=== PATIENT | female | born 1955 | race Caucasian/White ===

== ENCOUNTER 2022-03-24 09:11 | Outpatient (CLI) | payer MEDICARE, SELFPAY ==
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
== END 2022-03-24 09:12 | disposition home or self-care (01) ==
PROVIDERS: PCP Family Medicine; Visit Provider Orthopaedic Surgery
DX: Z01.818 Encounter for other preprocedural examination (principal)
CPT/HCPCS: 36415; 86850; 86900; 86901

== ENCOUNTER 2022-03-26 09:53 | Day surgery (SDC) | payer MEDICARE, SELFPAY ==
[2022-03-26] VITALS (20 sets, daily range): BP systolic 98–153; BP diastolic 48–80; PULSE 66–95; RESP 6–20; TEMP 36.1–36.7; O2SAT 6–98; BMI 31.6
[2022-03-26] MEDS: OXYCODONE (CR) 10 MG TAB.ER.12H PO (09:56)
[2022-03-26] MEDS: fentaNYL 100 MCG/2 ML inj IVP (09:56)
[2022-03-26] MEDS: CELECOXIB 200 MG CAPSULE PO ×2 (09:56→20:17)
[2022-03-26] MEDS: ACETAMINOPHEN 500 MG TABLET 1000 MG PO ×3 (09:56→23:38)
[2022-03-26] MEDS: MIDAZOLAM HCL 1 MG/ML inj IVP (09:56)
[2022-03-26] MEDS: LACTATED RINGERS 1000 ML 1,000 ML 100 ML IV ×2 (10:00→13:19)
--- NOTE | 2022-03-26 11:14 | SUR.PREOP ---
TIME?OUT:?1105 PT/RN/MDA?VERIFICATION?OF?SURGICAL?SITE,?PROCEDURE,?AND?CONSENT OBTAINED?PRIOR?TO?INVASIVE?PROCEDURE.left hip
[2022-03-26] MEDS: CEFAZOLIN 2 GM INJ IVP (11:46)
[2022-03-26] MEDS: TRANEXAMIC ACID 100 MG/ML INJ 1000 MG IV (11:50)
--- NOTE | 2022-03-26 12:15 | CRLHL7_ITS ---
For Patients: As a result of the Cures Act, medical imaging exams and procedure reports are released immediately into your electronic medical record. You may view this report before your referring provider. If you have questions, please contact your health care provider. Indication: Hip replacement surgery Technique: AP hip fluoroscopic images. Fluoroscopy time 105.5 seconds. Findings/Impression: Hardware from a left total hip arthroplasty is in satisfactory position. Dictated by John Bazzi MD @ 03/27/2022 10:00:53 AM (Electronically Signed)
--- NOTE | 2022-03-26 13:08 | P.NB_ITS ---
Nerve Block Nerve Block Time Seen by Provider: 11:05 Date Seen: 03/26/22 Type of block requested by surgeon for post-operative analgesia: ANA/LFCN Side: left Time out performed: Yes Verification of patient name: Yes Verification of date of : Yes Site marking: site marked Name of person performing procedure: João Continuous monitoring Was continuous monitoring of O2 sat, B/P, museum technician, recorded every 15 minutes?: Yes Procedure Checklist: sterile prep, needles and gloves Ultrasound guided. Images saved: Yes Medications given in 5ml increments after negative aspiration: Ropivicaine %: 0.5 mL: 30 Needle gauge: 20 Decadron (mg): 10 Precedex (mcg): 25 Patient tolerated procedure well: Yes Additional comments: Needle noted below psoas tendon needle noted adjacent to LFCN Block Charges Block Charge (with Pro Fee): Other Periph Nerve Block Use of Ultrasound Machine for Block: Yes- US Guidance/pain block
--- NOTE | 2022-03-26 13:23 | W.ANESCHARGE ---
Anesthesia Charges Start Date/Time Anesthesia Start Date: 03/26/22 Anesthesia Start Time: 11:31 Stop Date/Time Anesthesia Stop Date: 03/26/22 Anesthesia Stop Time: 14:34 Summary Emergency: No
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
--- NOTE | 2022-03-26 13:51 | PM.ORPRC ---
Procedure Note Date of procedure: 03/26/22 Procedure: PREOPERATIVE DIAGNOSIS: Left hip osteoarthritis POSTOPERATIVE DIAGNOSIS: Left hip osteoarthritis NAME OF OPERATION: Left total hip arthroplasty SURGEON: Kentrell Brennan MD FACILITIES CLERK: Elizabeth Engel PA-C, JONATAN Ahn IMPLANTS: 1. [employer] [place] # 52 sector ingrowth cup 2. 36 x 52 +4 neutral polyethylene 3. Actis # 3 standard collared ingrowth stem 4. 36 + 1.5 ceramic femoral head ANESTHESIA: General ESTIMATED BLOOD LOSS: 200 cc COMPLICATIONS: None SPECIMENS: None DRAINS: None PREOPERATIVE ANTIBIOTICS: Ancef 2 grams INDICATIONS: The patient is a 66-year-old with a longstanding history of severe, unrelenting left hip pain secondary to end-stage left hip osteoarthritis. Despite appropriate nonoperative management, including activity modification, use of an assist device, anti-inflammatories, [id number] pain medication, physical therapy and injections, they continue to have pain and disability. Operative intervention was offered. The risks, benefits and expected outcomes were discussed in detail. These included but were not limited to: Infection, bleeding, injury to blood vessel or nerve, venous thromboembolism. All questions were answered to their satisfaction. Use of an insurance assistant was necessary throughout the case for patient positioning and safety, soft tissue retraction and closure. A modifier 22 is appropriate for this case. With the patient's small acetabulum and eccentric wear, creating an oval-shaped cup, fixation of the acetabular component was difficult. This necessitated the use of screws an added more than 50% of the time typically required to complete the case. PROCEDURE: The patient was placed supine on the [place] table. General anesthesia was administered. The insurance assistant made sure the patient was properly positioned. The left hip was prepped and draped in the usual sterile fashion. The image intensifier was brought in for a perfect AP pelvis and a perfect double tear drop AP view of each hip which were used for intraoperative templating with our fluoroscopic guide. An oblique incision was made 3 cm distal and 3 cm lateral to the anterior superior iliac spine. The insurance assistant retracted the soft tissues to protect them. Subcutaneous dissection was taken with electrocautery to the superficial fascia. The fascia was divided in line with the incision. Blunt dissection was carried medially to the tensor fascia abiodun and sartorius interval. Deep dissection was carried with electrocautery. The circumflex vessels were cauterized and divided. The capsule was exposed and then divided in a T-fashion, tagged with #1 Ethibond sutures. Retractors were placed in the joint, held by the insurance assistant. The corkscrew was placed in the femoral head. The neck cut was made in the subcapital region. We made a second neck cut more distal. The napkin ring of bone was removed. The femoral head was removed intact. Acetabular retractors were placed, held by the insurance assistant. The labrum was sharply debrided. The capsule was released. The 43 mm reamer was used to the true medial wall. After doing so we appear to be medial to the ilioischial line on the AP view, despite just getting to the true medial wall. We then enlarged in 2 mm increments using the image intensifier for our reamer placement. Given the amount of superior bone loss, we needed to ream up to a larger cup. This resulted in loss of some of the anterior column. Therefore, fixation of the cup was difficult. We were unable to get provisional fixation of the cup with an manager pulmonary. Therefore, we placed the cup by hand, making sure it was fully seated. The dial in the version and coverage, using the image intensifier. We then placed a 6.5 mm x 40 mm superior screw in the ilium. This had excellent purchase. We placed a 2nd screw, more posterior and lateral in the ilium measuring 6.5 x 40 mm. Again, this had excellent purchase. Their placement was confirmed with the image intensifier in multiple planes. We placed the hole eliminator and the polyethylene. Attention was then turned to the proximal femur. The limb was placed in 140 degrees of external rotation, maximum extension and adduction. A significant amount of time was spent releasing the capsule to allow us to deliver the femur into the wound and complete the femoral side safely. Retractors were held by the insurance assistant throughout the femoral preparation. The box machine operator and canal finder were used. Broaches were used to a stable size. The calcar reamer was used. Trial components were placed. The hip was reduced and was found to be stable with appropriate soft tissue tension. Length and offset had been nicely restored using the image intensifier and our fluoroscopic guide. Trial components were removed. The stem was impacted. We placed the femoral head. Again, the hip was reduced and was found to be stable with appropriate soft tissue tension. Length and offset had been nicely restored. The insurance assistant did a three minute dilute Betadine solution soak. The insurance assistant irrigated the wound with 3 liters of normal saline via pulse lavage. The insurance assistant repaired the anterior capsule with a #1 Vicryl and our previously placed Ethibond sutures. The insurance assistant closed the fascia over the tensor fascia abiodun with a #1 PDO Stratafix, subcutaneous tissues with 2-0 Vicryl, skin with a running 3-0 Stratafix and glue. A dry dressing was applied by the insurance assistant. Sponge and needle counts were correct x 2. The patient tolerated the procedure well; there were no apparent complications. They were awakened and extubated in the operating room, sent to the Post-Anesthesia Care Unit in satisfactory condition. PLAN: 1. The patient will be mobilized with physical therapy, weight-bearing as tolerates 2. Xarelto x 5 days then aspirin x 30 days will be used for DVT prophylaxis 3. The patient will be discharged once medically appropriate
--- NOTE | 2022-03-26 14:37 | W.ANESCHARGE ---
Anesthesia Charges Start Date/Time Anesthesia Start Date: 03/26/22 Anesthesia Start Time: 11:31 Stop Date/Time Anesthesia Stop Date: 03/26/22 Anesthesia Stop Time: 14:34 Summary Emergency: No
[2022-03-26] MEDS: LACTATED RINGERS 1000 ML 1,000 ML 75 ML IV (15:40)
[2022-03-26] MEDS: HYDROmorphone 0.5 mg/0.5 ml inj IVP (15:51)
[2022-03-26] MEDS: CEFAZOLIN 1 GM in 0.9 % SODIUM CHLORIDE Mini-bag 100 ML IVPB (17:39)
[2022-03-26] MEDS: SENNOSIDES 1 TAB TABLET 2 TAB PO (20:17)
--- NOTE | 2022-03-26 20:30 | PC.NURSE ---
shift note: pt to via bed @ 1530. Pt moving lt l/e indept withing 2 hrs of return from pacu. pt has intact PP bilat. pt has cap refill <3sec. vss stable. IV patent. Ls clr. pt using IS . pt using angelica hugger upon arrival to . Pt up to bathroom 1/walker with steady gait. pt voided small amount. Pt tolerated diet. drs to lt thigh/hip c.d/i with ice to incision. pt medicated with dilaudid x1 for 5/10 pain in lt hip.
[2022-03-26] MEDS: OXYCODONE 5 MG TABLET PO (22:10)
[2022-03-27] MEDS: CEFAZOLIN 1 GM in 0.9 % SODIUM CHLORIDE Mini-bag 100 ML IVPB ×2 (02:16→10:26)
[2022-03-27] MEDS: OXYCODONE 5 MG TABLET PO ×3 (02:16→10:16)
[2022-03-27 03:00] VITALS: BP 135/71; PULSE 81; RESP 18; TEMP 36.7; O2SAT 100
--- NOTE | 2022-03-27 05:10 | PC.NURSE ---
[id number] Pt slept well during night, ambulating with walker, gb, sba, tolerates activity very well. rating R hip pain 2-4/10, relief with prn and scheduled meds. dressing C/D/I, active ice to site.
[2022-03-27] MEDS: ACETAMINOPHEN 500 MG TABLET 1000 MG PO (05:26)
[2022-03-27] MEDS: SODIUM CHLORIDE 0.9 % (FLUSH) 10 ML SYRINGE 5 ML IVF (05:29)
[2022-03-27 06:45] LABS: Basophils Percent Auto 0.1 % (0.0-3.0); Hematocrit 24.9 % (33.0-51.0); Immature Granulocytes Pct Auto 0.3 %; Lymphocytes Percent Auto 15.8 % (20-44); Mean Corpuscular HGB Conc 32 gm/dL (32-36); Mean Corpuscular Hemoglobin 29 pg (26-34); Mean Corpuscular Volume 89 fL (80-100); Monocytes Percent Auto 6.5 % (0.0-11.0); Neutrophils Percent Auto 77.3 % (42.0-72.0); Platelet Count* 242 K/uL (140-440); Red Blood Count 2.81 m/uL (4.00-5.20)
[2022-03-27 06:50] LABS: Slide Review Reflex No
[2022-03-27 07:00] VITALS: BP 144/89; PULSE 99; RESP 18; TEMP 36.7; O2SAT 98
[2022-03-27 07:07] LABS: Potassium* 5.1 mmol/L (3.6-5.1); Sodium* 133 mmol/L (135-149)
[2022-03-27 07:10] LABS: Blood Urea Nitrogen* 43 mg/dL (7-30); Creatinine* 1.8 mg/dL (0.5-1.5); Est. Creatinine Clearance* 22.57; Estimated Glomerular Filt Rate 30 ml/min
--- NOTE | 2022-03-27 08:48 | P.ORPN_ITS ---
Subjective Subjective Time Seen by Provider: 08:00 Date Seen: 03/27/22 Principal diagnosis: Status post left hip replacement Interval history: Marjorie is comfortable. She denies lightheadedness, fatigue, shortness of breath. She will be discharging to home today. She looks forward to getting back to work and playing with her grandchildren Ortho Exam Narrative Exam Narrative: Alert and oriented x3. Patient is in no acute distress. Converses without labored breathing. Hearing is grossly intact. Ambulates with a walker. Left hip dressing is intact. Mild tenderness. Mild soft tissue edema about the left hip. CMS is intact left lower extremity. Strong quad function. Bilateral calves are soft and nontender. Const Vital Signs, click to edit/add: Vital Signs - 24 hr 03/26/22 10:48 03/26/22 11:13 03/26/22 14:30 Temperature 97.8 F 97.0 F L Pulse Rate 82 70 73 Pulse Rate [Left Pulse Oximeter] Respiratory Rate 20 6 L 16 Blood Pressure 153/80 H 153/80 H 131/70 Blood Pressure [Right Arm] Pulse Oximetry 98 6 L 98 Oxygen Delivery Method Room Air Nasal Cannula Room Air Oxygen Flow Rate 3 03/26/22 14:35 03/26/22 14:40 03/26/22 14:45 Temperature Pulse Rate 72 68 68 Pulse Rate [Left Pulse Oximeter] Respiratory Rate 16 16 16 Blood Pressure 131/70 104/80 102/56 L Blood Pressure [Right Arm] Pulse Oximetry 97 98 98 Oxygen Delivery Method Room Air Room Air Room Air Oxygen Flow Rate 03/26/22 14:50 03/26/22 14:55 03/26/22 15:00 Temperature 97.0 F L Pulse Rate 67 66 68 Pulse Rate [Left Pulse Oximeter] Respiratory Rate 16 16 16 Blood Pressure 109/65 101/48 L 112/67 Blood Pressure [Right Arm] Pulse Oximetry 96 96 97 Oxygen Delivery Method Room Air Room Air Room Air Oxygen Flow Rate 03/26/22 15:33 03/26/22 15:30 03/26/22 15:45 Temperature 97.0 F L 97.4 F L 97.0 F L Pulse Rate Pulse Rate [Left Pulse Oximeter] 80 82 Respiratory Rate 15 15 16 Blood Pressure Blood Pressure [Right Arm] 102/69 102/69 111/57 L Pulse Oximetry 97 97 97 Oxygen Delivery Method Room Air Room Air Room Air Oxygen Flow Rate 3 03/26/22 16:00 03/26/22 16:15 03/26/22 16:30 Temperature 97.4 F L 97.4 F L 98 F Pulse Rate Pulse Rate [Left Pulse Oximeter] 82 82 85 Respiratory Rate 16 16 16 Blood Pressure Blood Pressure [Right Arm] 98/56 L 109/62 116/58 L Pulse Oximetry 97 97 94 Oxygen Delivery Method Room Air Room Air Room Air Oxygen Flow Rate 03/26/22 17:30 03/26/22 18:00 03/26/22 19:00 Temperature 98 F 98.1 F 97.9 F Pulse Rate Pulse Rate [Left Pulse Oximeter] 74 82 95 Respiratory Rate 16 16 16 Blood Pressure Blood Pressure [Right Arm] 100/68 110/67 100/68 Pulse Oximetry 95 95 97 Oxygen Delivery Method Room Air Room Air Room Air Oxygen Flow Rate 0 03/26/22 20:00 03/26/22 22:43 03/27/22 03:00 Temperature 97.8 F 98.0 F 98.0 F Pulse Rate Pulse Rate [Left Pulse Oximeter] 92 89 81 Respiratory Rate 16 18 18 Blood Pressure Blood Pressure [Right Arm] 124/73 118/72 135/71 Pulse Oximetry 98 98 100 Oxygen Delivery Method Room Air Room Air Room Air Oxygen Flow Rate 0 0 0 Assessment and Plan Assessment and plan (1) Status post left hip replacement: Problem details: Date of surgery 03/26/2022 Status: Acute Assessment and Plan: Plan for discharge is today to home if they meet discharge criteria. DVT prophylaxis includes Xarelto 10 mg daily for total of 5 days, then aspirin 81 mg twice daily for 30 days, Luis stockings x1 month may remove for 1 hr per d ay, frequent ambulation Remove dressing 1 week. Observe wound and phone Orthopedics with any questions or concerns Use Ice on operative hip unrestricted. Return to clinic in 1 week with PA for a wound check Return to clinic in [address] Brennan Minimize narcotic use. Wean off and discontinue soon as possible. Activities as tolerated. No strenuous activity. Attend outpt PT
[2022-03-27] MEDS: RIVAROXABAN 10 MG TABLET PO (09:12)
[2022-03-27] MEDS: CELECOXIB 200 MG CAPSULE PO (09:12)
[2022-03-27] MEDS: SENNOSIDES 1 TAB TABLET 2 TAB PO (09:12)
[2022-03-27 10:19] VITALS: BP 112/67; PULSE 68; RESP 18; TEMP 36.7
--- NOTE | 2022-03-27 11:46 | PC.NURSE ---
Pt. alert and oriented, pleasant and cooperative. Dressing to left hip C/D/I. Patient voiding well. Pt. tolerating reg diet. Pt. refused insulin and Blood sugar checks. Pt. IV removed intact. Discharged at 1115 accompanied by spouse, wheelchair ride to car, Pt. discharge instructions given and signed, belongings list signed, and pt. did not have any further questions regarding discharge. Pt. denied N/V/SOB. Pt. rated pain 4/10 and PRN oxy administered and tolerated well.
== END 2022-03-27 11:15 | disposition home or self-care (01) ==
LOC: OR 11:09 → MEDSURG 11:12
PROVIDERS: PCP Family Medicine; Visit Provider Orthopaedic Surgery
PROC: (CPT 27130; principal; 2022-03-26 12:15)
DX: M16.12 Unilateral primary osteoarthritis, left hip (principal); M25.552 Pain in left hip; I10 Essential (primary) hypertension; E11.9 Type 2 diabetes mellitus without complications; E78.00 Pure hypercholesterolemia, unspecified
CPT/HCPCS: 27130; 01214; 36415; 64450; 73501; 76942; 82565; 82962; 84132; 84295; 84520; 85025; 97116; 97161; 97165; A9270; C1713; C1776; J0330; J0690; J1100; J1170; J2250; J2370; J2405; J2704; J2795; J3010; J7120

== ENCOUNTER 2022-04-16 08:30 | Outpatient (RCR) | payer MEDICARE, SELFPAY ==
--- NOTE | 2022-03-22 08:59 | PT.OPEX ---
PT [place] [facility] Eval PT [facility] Out[facility] Eval Start: 03/22/22 07:22 Freq: Status: Active Protocol: Document 03/22/22 08:48 [email or web address] (Rec: 03/22/22 08:57 BETH [id number]) E-signed By Rita Montoya, PT Physical Therapy Outpatient Evaluation Insurance Information Recert Due Date 06/16/22 Insurance Name Other; See Comments Insurance Information/Comments [facility] medicare Medical Diagnosis Left hip replacement Left hip pain Encounter for other orthopedic aftercare Treating Diagnosis Left hip pain, limited hip ROM , antalgic gait, muscle weakness Referring MD Brennan Subjective Subjective Gretel reports to PT for preparation for upcoming left total hip replacement with anticipated DOS 03/26/22. [facility] [address] [facility] [address] [facility] with . 3 stairs to enter with B handrail and has already been negotiating with step to gait. Does have fridge in basement with extra groceries but able to negotiate stairs initially. She has FWW. 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 She plans to take about 8 weeks off from work but may return sooner if able. 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 DOS: scheduled for 03/26/22. Anticipated deficits/ impairments in pain, ROM, and strength. Pt would benefit from skilled PT interventions to facilitate preparation for upcoming surgery and optimization of return to PLOF following surgery. She demonstrates independence with HEP and use of FWW as well as appropriate gait pattern on stairs. She is appropriate to proceed with surgery at this time and has a safe d/c plan. All questions answered today. Primary Functional Limitations Walking, stair negotiation, getting up and down from the ground to play with grandkids, squatting, standing Plan of Care Rehabilitation Potential Good Physical Therapy Goals By end of session today, patient will...all goals met 03/22/22 Demonstrate appropriate gait pattern with FWW to utilize post surgery for optimal safety when ambulating Demonstrate ability to negotiate stairs using appropriate stair pattern post surgery for optimal safety when at home and in community Verbalize understanding of most appropriate home set up including needed equipment for optimal safety and recovery post surgery Be independent in HEP program to show ability to perform appropriate exercises post surgery Treatment Plan/Direct Interventions Gait Training,Ice/Cold/ Vasopneumatic,Joint Mobilization,Manual Therapy, Neuromuscular Re-ed,Self-Care/ Home Management,Therapeutic Activities,Therapeutic Exercises Frequency/Duration Re-evaluate following surgery Anticipated 1 x/wk for 4-6 weeks Patient Will Be Discharged From Therapy Completion of LTG(s), Independent w/HEP, Independently Progressing Evaluation Billing Untimed Code Treatment Minutes 15 Complexity Low Certification Information Initial Certification Date 03/22/22 Ending Certification Date 06/16/22 Provider Signature Shows Agreement With POC & Medical Necessity Physician Signature & Date Requested Please Sign/Date Here Physician Comment/Change : Physician NPI Number #
== END 2022-04-16 10:03 | disposition home or self-care (01) ==
PROVIDERS: PCP Family Medicine; Visit Provider Orthopaedic Surgery
DX: Z96.641 Presence of right artificial hip joint (principal); Z51.89 Encounter for other specified aftercare
CPT/HCPCS: 97110; 97116; 97161; 97164; 97535

== ENCOUNTER 2025-03-11 08:32 | Outpatient (CLI) | payer MEDICARE, SELFPAY | END 2025-03-11 08:33 | disposition home or self-care (01) | LOC: CT 08:33 | PROVIDERS: PCP Student in an Organized Health Care Education/Training Program; Visit Provider Orthopaedic Surgery Sports Medicine | DX: Z01.818 Encounter for other preprocedural examination (principal); M19.011 Primary osteoarthritis, right shoulder | CPT/HCPCS: 73200 ==

== ENCOUNTER 2025-04-07 06:01 | Day surgery (SDC) | payer MEDICARE, SELFPAY ==
[2025-04-07] VITALS (26 sets, daily range): BP systolic 102–160; BP diastolic 62–98; PULSE 62–90; RESP 12–18; TEMP 35.9–36.8; O2SAT 90–98; BMI 30.6
[2025-04-07] MEDS: SODIUM CHLORIDE 0.9 % (FLUSH) 10 ML SYRINGE IVF (06:55)
[2025-04-07] MEDS: LACTATED RINGERS 1000 ML 1,000 ML 100 ML IV (06:55)
[2025-04-07] MEDS: OXYCODONE (CR) 10 MG TAB.ER.12H PO (07:11)
--- NOTE | 2025-04-07 07:13 | W.PM.H&PU ---
History & Physical Update History & Physical Update H&P Reviewed and patient assessed: No changes noted
--- NOTE | 2025-04-07 07:26 | SUR.PREOP ---
TIME?OUT:?0735 PT/RN/MDA?VERIFICATION?OF?SURGICAL?SITE-RIGHT SHOULDER,?PROCEDURE,?NERVE BLOCK AND?CONSENT OBTAINED?PRIOR?TO?INVASIVE?PROCEDURE.
[2025-04-07] MEDS: MIDAZOLAM HCL 1 MG/ML inj IVP (07:37)
--- NOTE | 2025-04-07 08:12 | CRLHL7_ITS ---
For Patients: As a result of the Cures Act, medical imaging exams and procedure reports are released immediately into your electronic medical record. You may view this report before your referring provider. If you have questions, please contact your health care provider. Indication: Postop Technique: Two views right shoulder Findings/Impression: Hardware from a right shoulder arthroplasty is in satisfactory position. Bone alignment is normal. No sign of acute fracture. Postop changes are within normal limits. Dictated by John Bazzi MD @ 04/07/2025 10:38:04 AM (Electronically Signed)
--- NOTE | 2025-04-07 09:47 | P.ORPRC_ITS ---
Procedure Note Date of procedure: 04/07/25 Procedure: PREOPERATIVE DIAGNOSIS: 1. Right shoulder osteoarthrosis, primary, severe with fair to poor cuff tissue quality POSTOPERATIVE DIAGNOSIS: 1. Right shoulder osteoarthrosis, primary, severe with fair to poor cuff tissue quality 2. Right long head of the biceps tendinopathy and tenosynovitis PROCEDURE: 1. Right reverse shoulder arthroplasty. 2. Right long head of biceps open tenodesis SURGEON: Jose Lucero MD. TELEGRAPHIC TYPEWRITER OPERATOR: JONATAN Ahn - Of note, a skilled assistant floor covering printer was critical for this case to aid in patient positioning, tissue retraction, limb manipulation/positioning, retraction for glenoid exposure, which was challenging, awareness and protection of critical structures, and closure. ANESTHESIA: General plus supraclavicular block EBL: 200 ml IMPLANTS: DJ0 surgical Altivate humeral stem size 8 small shell, short with P2 porous coating vitamin E neutral poly small socket insert RSP glenoid base plate P2 porous coating with 3 perimeter locking screws 32 neutral glenosphere with retaining screw COMPLICATIONS: None evident INDICATIONS: The patient is a pleasant 69-year-old female who has experienced severe right shoulder pain and difficulty with use. Workup included imaging which revealed severe osteoarthrosis along with concern for rotator cuff quality. Physical exam was consistent with associated pain. Given the deformity, the dysfunction, and the pain, and failure of nonoperative m anagement, recommendation was made for surgery. DESCRIPTION OF PROCEDURE: Following a thorough discussion of risks, benefits, and alternatives, consent was obtained and the left shoulder was marked. The patient was brought to the operating room and placed supine on the operating table. Induction of anesthesia was undertaken. 1 g IV Ancef and 1 g tranexamic acid was administered within 1 hr of incision preoperatively. Appropriate time-out was performed identifying proper patient, site, and procedure. The operative extremity was prepped and draped in the appropriate sterile fashion using ChloraPrep after the patient was positioned in the lazy beach chair position with head in neutral alignment and all bony prominences well padded. A longitudinal incision was made for deltopectoral approach. Deltoid was retracted laterally. Cephalic vein was identified and retracted laterally as well. Vein was spared/protected throughout the case. The clavipectoral fascia was identified and divided longitudinally staying lateral to the conjoined tendon / coracoid. The conjoined tendon was protected with a blunt Hohmann. The long head of the biceps tendon was identified and the bicipital sheath released. The upper 1/4 of the pectoralis major was also released from its insertion. The long head of the biceps was tenodesed to the pectoralis major tendon. The remaining proximal tendon tissue was excised. The rotator cuff was inspected and found to have good integrity with the subscapularis but fair integrity with a supraspinatus, and a decision for a reverse shoulder arthroplasty was confirmed. The long head of biceps, of note, was significant flattened, thickened, with abundant tenosynovitis. A subscapularis cuff of tissue was left via tenotomy for later repair with the remaining subscapularis released in a subperiosteal fashion with the Bovie. This was tagged for later repair. The 3 sisters were cauterized. The upper subscapularis was released from the capsule with a curved Hinton scissors towards the glenoid. The inferior subscapularis was divided from the capsular tissue on its caudal surface with particular caution for the axillary nerve. This was palpated anterior to the subscapularis both prior to and near the finish of the case. Inferior humeral head osteophytes were excised with caution taken throughout the case with regards to the axillary nerve. The humerus was dislocated, and humeral head cut completed. Then a protector plate was applied. We turned our attention to the glenoid. The humerus was retracted posteriorly. The subscap was protected anteriorly and the labrum/long head biceps origin was excised circumferentially. The capsule was released along the anterior and inferior portions of the glenoid cautiously with a Rebolledo elevator being careful not to penetrate deep. The glenoid had appropriate exposure, and was prepared with the cannulated system with a target of approximately 0-5? of inferior tilt and corrected version based on preoperative templating (patient had ~10? of retroversion initially). Utilizing the match Point 3D printed guide, the guide pin was placed. The 3D printed jig removed and after placing the guide pin, the tap was placed followed by the glenoid reaming. The real base plate was opened, and inserted, and excellent compression/purchase was achieved with the central screw. Peripheral screws we re then drilled, measured, and placed. The glenosphere was then placed consistent with the preoperative plan utilizing the above noted glenosphere. After securing the glenosphere with the locking, torque limited screw, attention was turned back to the humerus. The humerus reaming was undertaken with the centered guide. A canal finder/reamer was sequentially enlarged by hand consistent with the preop plan. The real humeral stem was then opened and inserted with excellent metaphyseal fit and stability.[ Trial poly was placed and the shoulder reduced. Excellent reduction and stability achieved with appropriate tension on the conjoined tendon. At this stage, trial implants were removed, and the real polyethylene was inserted and the shoulder reduced. A 3 minute Betadine soak was performed followed by a thorough irrigation with normal saline. Subscapularis was repaired with #1 PDS to the cuff of tissue on the lesser tuberosity. Excellent reapproximation of tissue achieved. He mostasis was found to be appropriate. The deltopectoral interval was reapproximated with 0 Vicryl, subcutaneous and subcuticular closure was then performed with number 2-0 Vicryl and 4-0 Monocryl, respectively. A skilled assistant floor covering printer was critical for this case to aid in patient positioning, tissue retraction, limb manipulation/positioning, retraction for glenoid exposure, which was challenging, awareness and protection of critical structures, and closure. PLAN: 1. Sling much of the time to operative extremity. May come out of this for prescribed shoulder flexion to 90?, pendulums, and elbow/forearm/wrist/digit range of motion as tolerated. 2. OT consults to evaluate and treat along with education/assistance. 3. Tylenol, Ibuprofen, and/or Oxycodone for analgesics PRN. 4. Early ambulation encouraged. 5. 23 hr perioperative antibiotics 6. Given a systolic murmur heard by our anesthesia team and some irregular heart rhythms during the procedure, mutual decision was made to have the patient admitted overnight. The hospitalist team has been notified. An echocardiogram is planned during this admission.
--- NOTE | 2025-04-07 10:22 | P.ANES_ITS ---
Anesthesia Charges Start Date/Time Anesthesia Start Date: 04/07/25 Anesthesia Start Time: 07:47 Stop Date/Time Anesthesia Stop Date: 04/07/25 Anesthesia Stop Time: 10:22 Summary Extremes of Age - Over 70 or under 1: STRING LASTER Coding CPT Codes CPT Codes: ANESTH SHOULDER REPLACEMENT - 98301 ([id number]) P3 - PATIENT W/SEVERE SYS DISEASE, QK - PROGRAM MANAGEMENT ANALYST 2-4 CNCRNT ANES PROC, QX - STRING LASTER SVC W/ MD MED DIRECTION Additional Codes: Summary - Extremes of Age - Over 70 or under 1: STRING LASTER ([id number])
--- NOTE | 2025-04-07 10:22 | W.ANESCHARGE ---
Anesthesia Charges Start Date/Time Anesthesia Start Date: 04/07/25 Anesthesia Start Time: 07:47 Stop Date/Time Anesthesia Stop Date: 04/07/25 Anesthesia Stop Time: 10:22 Summary Extremes of Age - Over 70 or under 1: FUR FLOOR WORKER Coding CPT Codes CPT Codes: ANESTH SHOULDER REPLACEMENT - 20223 ([id number]) P3 - PATIENT W/SEVERE SYS DISEASE, QK - NEUROLOGY NURSE 2-4 CNCRNT ANES PROC, QX - FUR FLOOR WORKER SVC W/ MD MED DIRECTION Additional Codes: Summary - Extremes of Age - Over 70 or under 1: FUR FLOOR WORKER ([id number])
--- NOTE | 2025-04-07 10:26 | P.NB_ITS ---
Nerve Block Nerve Block Time Seen by Provider: 07:35 Date Seen: 04/07/25 Type of block requested by surgeon for post-operative analgesia: supraclavicular Side: right Time out performed: Yes Verification of patient name: Yes Verification of date of : Yes Site marking: site marked Name of person performing procedure: João Continuous monitoring Was continuous monitoring of O2 sat, B/P, clinical research monitor, recorded every 15 minutes?: Yes Procedure Checklist: sterile prep, needles and gloves Ultrasound guided. Images saved: Yes Medications given in 5ml increments after negative aspiration: Ropivicaine %: 0.5 mL: 15 Needle gauge: 22 Precedex (mcg): 25 Patient tolerated procedure well: Yes Block Charges Block Charge (with Pro Fee): Brachial Plexus Use of Ultrasound Machine for Block: Yes- US Guidance/pain block
--- NOTE | 2025-04-07 10:27 | P.ANES_ITS ---
Anesthesia Charges Start Date/Time Anesthesia Start Date: 04/07/25 Anesthesia Start Time: 07:47 Stop Date/Time Anesthesia Stop Date: 04/07/25 Anesthesia Stop Time: 10:22 Summary Extremes of Age - Over 70 or under 1: MDA Coding CPT Codes CPT Codes: ANESTH SHOULDER REPLACEMENT - 77548 ([id number]) QK - OPERATING MANAGER 2-4 CNCRNT ANES PROC, QX - WATER USE INSPECTOR SVC W/ MD MED DIRECTION, P3 - PATIENT W/SEVERE SYS DISEASE Additional Codes: Summary - Extremes of Age - Over 70 or under 1: MDA ([id number])
[2025-04-07] MEDS: LACTATED RINGERS 1000 ML 1,000 ML 75 ML IV (11:35)
--- NOTE | 2025-04-07 13:34 | PM.IMCN1 ---
Date of Consult Patient: Idalia Patient Consult date: 04/07/25 Requesting Physician: Orthopedics Primary Care Provider: Adeola Oconnor, DO Consult Narrative Narrative: Gretel Dyer is a 69 year old female admitted to the hospital for elective right reverse shoulder arthroplasty. Procedure performed by Dr. Lucero. He requests consultation for medical management. There are no operative complications though she did have bigeminy noted by Anesthesia and they recommended cardiac monitoring postoperatively. Patient reports feeling fine postoperatively. No dyspnea. She is requiring a little bit of oxygen to maintain her oxygen saturations. No chest pain or palpitations. She reports a longstanding history of a heart murmur but she does not recall having a diagnosis for this heart murmur. She did have a stress echo in June of 2015 which noted no significant valvular disease. She has not had symptomatic heart disease with unusual exertional dyspnea, chest pain, palpitations, syncope, PND. She has not had problems with previous surgeries including no problems with anesthesia, bleeding or clotting disorders. Review of Systems Narrative: Negative except as noted above [facility]SH [facility] Medical History (Updated 04/07/25 @ 13:45 by Christos Torres MD) Chronic renal disease, stage III ?N18.30 - Chronic kidney disease, stage 3 unspecified (ICD-10) Mild single current episode of major depressive disorder ?F32.0 - Major depressive disorder, single episode, mild (ICD-10) PTSD (post-traumatic stress disorder) ?F43.10 - Post-traumatic stress disorder, unspecified (ICD-10) Diabetes ?E11.9 - Type 2 diabetes mellitus without complications (ICD-10) High cholesterol ?E78.00 - Pure hypercholesterolemia, unspecified (ICD-10) Hypertension ?I10 - Essential (primary) hypertension (ICD-10) Surgical History (Updated 04/07/25 @ 13:44 by Christos Torres MD) Status post reverse arthroplasty of shoulder ?Z96.619 - Presence of unspecified artificial shoulder joint (ICD-10) Status post left hip replacement (03/26/22) ?Z96.642 - Presence of left artificial hip joint (ICD-10) History of vitrectomy ?Z98.890 - Other specified postprocedural states (ICD-10) S/P total left hip arthroplasty (03/26/22) ?Z96.642 - Presence of left artificial hip joint (ICD-10) H/O eye surgery H/O: hysterectomy ?Z90.710 - Acquired absence of both cervix and uterus (ICD-10) H/O section ?Z98.891 - History of uterine scar from previous surgery (ICD-10) Status post total knee replacement, right ?Z96.651 - Presence of right artificial knee joint (ICD-10) Family History Father Emphysema lung Mother Dementia Brother Melanocarcinoma Sister Osteopenia Bronchitis Social History (Updated 04/07/25 @ 13:41 by Christos Torres MD) Narrative: She lives between [place] in [place] with her . 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 She does not smoke and rarely drinks alcohol. Smoking Status: Never smoker Do you use any of these nicotine containing products: None How often do you have a drink containing alcohol: monthly or less Alcohol type: wine How many standard drinks containing alcohol do you have on a typical day: 1 or 2 How often do you have six or more drinks on one occasion: Never AUDIT-C Alcohol total score: 1 Non-prescribed substance use: denies use Caffeine: No Are you using contraception or practicing any form of control: No Meds Home Medications and Allergies Home Medications ?Medication ?Instructions ?Recorded ?Confirmed ?Type amoxicillin 500 mg capsule 2,000 mg PO ONCE PRN 02/20/22 04/07/25 History escitalopram oxalate 10 mg tablet 10 mg PO DAILY 02/20/22 04/07/25 History glimepiride 1 mg tablet 1 mg PO DAILY 02/20/22 04/07/25 History lisinopril 5 mg tablet 5 mg PO DAILY 02/20/22 04/07/25 History metformin 500 mg tablet,extended 500 mg PO BIDWM 02/20/22 04/07/25 History release 24 hr simvastatin 20 mg tablet 20 mg PO HS 02/20/22 04/07/25 History acetaminophen 500 mg capsule 500 - 1,000 mg (1 - 2 x 500 mg) PO 03/26/22 04/07/25 Rx Q6H PRN pain #100 caps aspirin 81 mg tablet,delayed 81 mg PO DAILY 05/08/22 04/07/25 History release lorazepam 0.5 mg tablet 0.5 mg PO Q6H PRN 03/31/23 04/07/25 History ondansetron 4 mg disintegrating 4 mg PO Q8H PRN nausea and 04/07/25 Rx tablet vomiting #15 tabs oxycodone 5 mg tablet 5 mg PO Q4-8H PRN pain #25 tabs 04/07/25 Rx sennosides 8.6 mg-docusate sodium 1 tab-cap PO BID PRN constipation 04/07/25 Rx 50 mg tablet (Senna-S) #15 tabs Allergies Allergy/AdvReac Type Severity Reaction Status Date / Time atorvastatin Allergy itching Verified 04/07/25 06:16 Exam Narrative: Exam Narrative: She is alert and appears in no distress. Speech is normal. Oropharynx with small airway. Neck is supple without mass or adenopathy. No jugular venous distension. Respirations are clear to auscultation. Cardiovascular: S1, S2, regular rate and rhythm. Abdomen: Bowel sounds active. Abdomen is soft without tenderness or mass. Right upper extremity has affective anesthesia causing numbness and inability to move the fingers of her right hand. They are warm to touch with good capillary refill and good pulses. Left upper extremity in both lower extremities are normal with intact pulses motion and sensation. Const: Vital Signs, click to edit/add: Vital Signs - 24 hr 04/07/25 06:48 04/07/25 07:35 04/07/25 07:40 Temperature 36.7 C Pulse Rate 68 76 62 Pulse Rate [Pulse Oximeter] Respiratory Rate 16 14 12 Blood Pressure 160/95 H 160/98 H 129/78 Blood Pressure [Le ft Arm] Pulse Oximetry 97 97 94 Oxygen Delivery Me thod Room Air Room Air Nasal Cannula Oxygen Flow Rate 3 04/07/25 10:17 04/07/25 10:25 04/07/25 10:30 Temperature 36.1 C L Pulse Rate 85 80 84 Pulse Rate [Pulse Oximeter] Respiratory Rate 16 14 14 Blood Pressure 149/83 H 132/62 149/80 H Blood Pressure [Le ft Arm] Pulse Oximetry 90 96 97 Oxygen Delivery Me thod Room Air Nasal Cannula Nasal Cannula Oxygen Flow Rate 3 3 04/07/25 10:35 04/07/25 10:40 04/07/25 10:45 Temperature 36.2 C L Pulse Rate 80 80 81 Pulse Rate [Pulse Oximeter] Respiratory Rate 16 14 18 Blood Pressure 125/75 134/72 139/79 Blood Pressure [Le ft Arm] Pulse Oximetry 98 97 96 Oxygen Delivery Me thod Nasal Cannula Nasal Cannula Room Air Oxygen Flow Rate 3 3 04/07/25 10:50 04/07/25 10:55 04/07/25 11:04 Temperature 36.2 C L Pulse Rate 84 81 Pulse Rate [Pulse Oximeter] 82 Respiratory Rate 14 16 Blood Pressure 131/77 135/76 Blood Pressure [Le ft Arm] 130/85 Pulse Oximetry 94 95 95 Oxygen Delivery Me thod Room Air Room Air Room Air Oxygen Flow Rate 04/07/25 11:15 Temperature Pulse Rate Pulse Rate [Pulse Oximeter] 75 Respiratory Rate 16 Blood Pressure Blood Pressure [Le ft Arm] 114/70 Pulse Oximetry 95 Oxygen Delivery Me thod Room Air Oxygen Flow Rate Assessment and Plan Assessment and plan (1) Status post reverse arthroplasty of shoulder: Problem comment: Dr. Nic Mcduffie, 04/07/2025 Status: Acute (2) Heart murmur: Problem comment: Obtain echo. Not clearly symptomatic Status: Acute (3) Bigeminy: Problem comment: Electrocardiogram on preop was normal. driver manager, check electrolytes Status: Acute Plan 69-year-old female admitted to the hospital for postoperative monitoring of cardiac arrhythmia and heart murmur. Cardiac evaluation will be done here with probable outpatient follow-up with Cardiology depending on her clinical course and findings. Total Time Spent Total Time Spent: Total time spent today is 60 minutes in reviewing outside records, coordination of care, discussion with patient and other providers ongoing management of heart rhythm problems and heart murmurs
[2025-04-07 14:01] LABS: Chloride* 103 mmol/L (96-114); Potassium* 4.2 mmol/L (3.6-5.1); Sodium* 134 mmol/L (135-149)
[2025-04-07 14:04] LABS: Anion Gap 11 mEq/L (7-15); Blood Urea Nitrogen* 23 mg/dL (7-30); Carbon Dioxide* 20 mmol/L (20-32); Creatinine* 1.1 mg/dL (0.5-1.5); Est. Creatinine Clearance* 35.40; Estimated Glomerular Filt Rate 54 ml/min
[2025-04-07 14:05] LABS: Calcium* 8.5 mg/dL (8.4-10.6); Glucose* 226 mg/dL (60-115)
[2025-04-07 14:47] LABS: Hematocrit* 33.6 % (33.0-51.0); Hemoglobin* 10.1 gm/dL (12.0-16.0); Immature Granulocytes Pct Auto 0.3 %; Mean Corpuscular HGB Conc 30 gm/dL (32-36); Mean Corpuscular Hemoglobin 29 pg (26-34); Mean Corpuscular Volume 96 fL (80-100); RDW Coefficient of Variation % 13.4 % (11.5-15.5); Red Blood Count* 3.49 m/uL (4.00-5.20); White Blood Count* 12.28 K/uL (4.50-11.00)
[2025-04-07 14:52] LABS: Immature Granulocytes Abs Auto 0.00 K/uL (0.00-0.30); Lymphocytes Absolute Auto 0.90 K/uL (0.90-2.90); Slide Review Reflex No
[2025-04-07] MEDS: CEFAZOLIN 1 GM in 0.9 % SODIUM CHLORIDE Mini-bag 100 ML IVPB (14:54)
[2025-04-07] MEDS: ACETAMINOPHEN 500 MG TABLET 1000 MG PO ×2 (14:54→20:51)
[2025-04-07 15:04] LABS: NT Pro B Type NatriureticPept* 48 pg/mL (See Note)
--- NOTE | 2025-04-07 16:03 | PC.NURSE ---
Nursing note this public relations writer in pt chart d/t assisting day nurse
[2025-04-07] MEDS: METFORMIN ER 500 MG PO (18:01)
--- NOTE | 2025-04-07 19:06 | PC.NURSE ---
End of Shift: Patient pleasant and cooperative, A&O. VSS, afebrile. SpO2 maintained above 90% on RA while awake, pt was needing supplemental O2 while sleeping this shift. Patient denies pain this shift. Dressing to right shoulder C/D/I, CMS intact. Tolerating regular diet, denies nausea.
[2025-04-07] MEDS: SIMVASTATIN 20 MG TABLET PO (20:52)
[2025-04-08 01:00] VITALS: BP 140/70; PULSE 90; RESP 18; TEMP 36.7; O2SAT 97
[2025-04-08] MEDS: CEFAZOLIN 1 GM in 0.9 % SODIUM CHLORIDE Mini-bag 100 ML IVPB ×2 (01:05→06:56)
[2025-04-08] MEDS: ACETAMINOPHEN 500 MG TABLET 1000 MG PO ×2 (02:24→08:55)
[2025-04-08 02:47] VITALS: BP 153/64; PULSE 74; RESP 18; TEMP 36.7; O2SAT 95
[2025-04-08 05:00] VITALS: BP 148/66; PULSE 74; RESP 18; TEMP 36.7; O2SAT 94
[2025-04-08 07:00] VITALS: BP 144/83; PULSE 80; PULSE 91; RESP 18; TEMP 36.7; O2SAT 99
[2025-04-08 08:37] VITALS: BP 144/83; RESP 18; TEMP 36.7; O2SAT 99
[2025-04-08] MEDS: GLIMEPIRIDE 1 MG TABLET PO (08:55)
[2025-04-08] MEDS: METFORMIN ER 500 MG PO (08:55)
[2025-04-08] MEDS: ASPIRIN 81 MG TABLET EC PO (08:56)
[2025-04-08] MEDS: SODIUM CHLORIDE 0.9 % (FLUSH) 10 ML SYRINGE 5 ML IVF (08:56)
[2025-04-08] MEDS: ESCITALOPRAM 10 MG TABLET PO (08:56)
[2025-04-08] MEDS: SENNOSIDES 1 TAB TABLET 2 TAB PO (08:56)
--- NOTE | 2025-04-08 09:46 | P.ORPN_ITS ---
Subjective Subjective Time Seen by Provider: 07:45 Date Seen: 04/08/25 Principal diagnosis: Status post right reverse total shoulder arthroplasty Interval history: Gretel feels that her block has already worn off. She can move her fingers, w rist, elbow and sensation has returned. She will discharge to home today. Ortho Exam Narrative Exam Narrative: Alert and oriented x3. Patient is in no acute distress. Converses without labored breathing. Hearing is grossly intact. Ambulates with a normal gait. Examination of the right shoulder shows ecchymosis. Dressing is in place and intact. No erythema or warmth or sign of infection. She is easily able to range her right elbow, wrist, fingers. Sensation is normal in her hand. Mild edema. Const Vital Signs, click to edit/add: Vital Signs - 24 hr 04/07/25 10:17 04/07/25 10:25 04/07/25 10:30 Temperature 97.0 F L Pulse Rate 85 80 84 Pulse Rate [Pulse Oximeter] Respiratory Rate 16 14 14 Blood Pressure 149/83 H 132/62 149/80 H Blood Pressure [Left Arm] Pulse Oximetry 90 96 97 Oxygen Delivery Method Room Air Nasal Cannula Nasal Cannula Oxygen Flow Rate 3 3 04/07/25 10:35 04/07/25 10:40 04/07/25 10:45 Temperature 97.1 F L Pulse Rate 80 80 81 Pulse Rate [Pulse Oximeter] Respiratory Rate 16 14 18 Blood Pressure 125/75 134/72 139/79 Blood Pressure [Left Arm] Pulse Oximetry 98 97 96 Oxygen Delivery Method Nasal Cannula Nasal Cannula Room Air Oxygen Flow Rate 3 3 04/07/25 10:50 04/07/25 10:55 04/07/25 11:04 Temperature 97.2 F L Pulse Rate 84 81 Pulse Rate [Pulse Oximeter] 82 Respiratory Rate 14 16 Blood Pressure 131/77 135/76 Blood Pressure [Left Arm] 130/85 Pulse Oximetry 94 95 95 Oxygen Delivery Method Room Air Room Air Room Air Oxygen Flow Rate 04/07/25 11:15 04/07/25 11:30 04/07/25 11:45 Temperature 96.7 F L 97.3 F L Pulse Rate Pulse Rate [Pulse Oximeter] 75 81 80 Respiratory Rate 16 16 16 Blood Pressure Blood Pressure [Left Arm] 114/70 130/72 119/70 Pulse Oximetry 95 92 93 Oxygen Delivery Method Room Air Room Air Room Air Oxygen Flow Rate 04/07/25 12:00 04/07/25 12:30 04/07/25 13:00 Temperature 96.9 F L Pulse Rate Pulse Rate [Pulse Oximeter] 82 89 88 Respiratory Rate 16 Blood Pressure Blood Pressure [Left Arm] 102/68 121/66 124/73 Pulse Oximetry 93 96 Oxygen Delivery Method Nasal Cannula Room Air Oxygen Flow Rate 1 04/07/25 14:00 04/07/25 15:00 04/07/25 15:30 Temperature 98.3 F Pulse Rate 89 Pulse Rate [Pulse Oximeter] 87 87 Respiratory Rate 16 18 Blood Pressure Blood Pressure [Left Arm] 129/75 122/71 Pulse Oximetry 96 95 Oxygen Delivery Method Room Air Oxygen Flow Rate 04/07/25 16:00 04/07/25 17:00 04/07/25 19:00 Temperature 98.1 F 98.1 F Pulse Rate Pulse Rate [Pulse Oximeter] 84 89 89 Respiratory Rate 16 16 Blood Pressure Blood Pressure [Left Arm] 120/72 120/66 120/66 Pulse Oximetry 96 96 Oxygen Delivery Method Room Air Room Air Oxygen Flow Rate 1 04/07/25 21:00 04/07/25 23:00 04/07/25 23:00 Temperature 98 F Pulse Rate Pulse Rate [Pulse Oximeter] 74 74 Respiratory Rate 16 16 16 Blood Pressure Blood Pressure [Left Arm] 119/80 Pulse Oximetry 96 96 Oxygen Delivery Method Room Air Room Air Oxygen Flow Rate 04/07/25 23:00 04/07/25 23:00 04/08/25 01:00 Temperature 98 F 98.1 F Pulse Rate 90 Pulse Rate [Pulse Oximeter] 74 90 Respiratory Rate 16 18 Blood Pressure Blood Pressure [Left Arm] 119/80 140/70 H Pulse Oximetry 96 97 Oxygen Delivery Method Room Air Room Air Oxygen Flow Rate 1 04/08/25 02:47 04/08/25 05:00 04/08/25 07:00 Temperature 98.1 F 98.1 F Pulse Rate 91 Pulse Rate [Pulse Oximeter] 74 74 Respiratory Rate 18 18 Blood Pressure Blood Pressure [Left Arm] 153/64 H 148/66 H Pulse Oximetry 95 94 Oxygen Delivery Method Room Air Room Air Oxygen Flow Rate 04/08/25 07:00 04/08/25 07:00 04/08/25 08:37 Temperature 98.1 F 98.1 F Pulse Rate Pulse Rate [Pulse Oximeter] 80 Respiratory Rate 18 18 Blood Pressure Blood Pressure [Left Arm] 144/83 H 144/83 H Pulse Oximetry 99 99 99 Oxygen Delivery Method Room Air Room Air Room Air Oxygen Flow Rate Assessment and Plan Assessment and plan (1) Status post reverse arthroplasty of shoulder: Problem details: Right, Dr. Lucero, 04/07/2025 Status: Acute Assessment and Plan: Plan for discharge is to home when they meet discharge criteria. Patient will wear the sling for 6 weeks post surgery. They can take it off for comfort and for exercises. May come out of this for prescribed shoulder flexion to 90?, pendulums, and elbow/forearm/wrist/digit range of motion as tolerated. Patient will attend outpatient physical therapy for the operative shoulder . For discharge, oxycodone and Tylenol for pain. Do not drive while on narcotic pain medication. Drive only when safe to do so, when they have normal use/function of the upper extremity, this will likely take 6 weeks. Patient will minimize and discontinue the narcotic as soon as possible. Dressing will be removed at post operative appt. Dressing is waterproof. May shower. Expect swelling and bruising about the shoulder and upper extremity. Use of ice/active ice without restriction. Notify Orthopedics if swelling is excessive. notify Orthopedics with any questions or concerns. [phone] Return to Orthopedic clinic as scheduled for a wound check Return to clinic in [address] Brennan.
--- NOTE | 2025-04-08 10:59 | P.IMPN_ITS ---
Assessment and Plan Assessment and plan (1) Status post reverse arthroplasty of shoulder: Problem comment: Right, Dr. Lucero, 04/07/2025. Uncomplicated postoperative course Status: Acute (2) Atrial bigeminy: Problem comment: Noted with induction of anesthesia and blood pressure going from high to low normal. 24 hours of cardiac monitoring subsequently showed no arrhythmia Status: Acute (3) Aortic stenosis: Problem comment: Moderate aortic stenosis seen on echocardiogram from 04/07/2025. Routine outpatient follow-up Status: Acute (4) Hypomagnesemia: Problem comment: Magnesium 1.3. Oral replacement and follow-up in 1-2 months Status: Acute Plan 69-year-old female in observation after surgery for reverse shoulder arthroplasty with cardiac dysrhythmia and murmur. Doing very well. She has asymptomatic moderate aortic stenosis which should get non emergent outpatient follow-up for ongoing monitoring. She had atrial bigeminy which can also receive outpatient follow-up if recurrent symptoms. Low magnesium requiring oral replacement and outpatient follow-up. Continue outpatient management of other chronic problems as needed. Total Time Spent Total Time Spent: Total time spent today is 35 minutes in coordination of care and discussing with patient and other providers ongoing management of these problems Subjective Date Seen: 04/08/25 Interval history: Gretel Dyer is a 69 year old female admitted to the hospital for elective right reverse shoulder arthroplasty. Procedure performed by Dr. Lucero. He requests consultation for medical management. There are no operative complications though she did have atrial bigeminy noted by Anesthesia when they induced anesthesia and her blood pressure dropped to low normal range. Because of the arrhythmia and her significant cardiac murmur they recommended hospital observation after surgery. Patient reports feeling fine postoperatively. No dyspnea. She is requiring a little bit of oxygen to maintain her oxygen saturations. No chest pain or palpitations. She reports a longstanding history of a heart murmur but she does not recall having a diagnosis for this heart murmur. She did have a stress echo in June of 2015 which noted no significant valvular disease. She has not had symptomatic heart disease with unusual exertional dyspnea, chest pain, palpitations, syncope, PND. She has not had problems with previous surgeries including no problems with anesthesia, bleeding or clotting disorders. Cardiac monitoring in the hospital was normal without significant dysrhythmia. Echocardiogram was normal except for moderate aortic stenosis. Electrolytes were normal except for a magnesium of 1.3. She remained entirely asymptomatic and has done well postoperatively with her shoulder surgery. Exam Narrative: Exam Narrative: She is alert and appears in no distress. Mood and affect are bright. Breathing is unlabored. Right upper extremity in a sling. Hand is warm to touch with good capillary refill. Some edema. Const: Vital Signs, click to edit/add: Vital Signs - 24 hr 04/07/25 11:04 04/07/25 11:15 04/07/25 11:30 Temperature 35.9 C L Pulse Rate Pulse Rate [Pulse Oximeter] 82 75 81 Respiratory Rate 16 16 Blood Pressure [Le ft Arm] 130/85 114/70 130/72 Pulse Oximetry 95 95 92 Oxygen Delivery Me thod Room Air Room Air Room Air Oxygen Flow Rate 04/07/25 11:45 04/07/25 12:00 04/07/25 12:30 Temperature 36.3 C L 36.1 C L Pulse Rate Pulse Rate [Pulse Oximeter] 80 82 89 Respiratory Rate 16 16 Blood Pressure [Le ft Arm] 119/70 102/68 121/66 Pulse Oximetry 93 93 96 Oxygen Delivery Me thod Room Air Nasal Cannula Room Air Oxygen Flow Rate 1 04/07/25 13:00 04/07/25 14:00 04/07/25 15:00 Temperature 36.8 C Pulse Rate Pulse Rate [Pulse Oximeter] 88 87 87 Respiratory Rate 16 18 Blood Pressure [Le ft Arm] 124/73 129/75 122/71 Pulse Oximetry 96 95 Oxygen Delivery Me thod Room Air Oxygen Flow Rate 04/07/25 15:30 04/07/25 16:00 04/07/25 17:00 Temperature 36.7 C Pulse Rate 89 Pulse Rate [Pulse Oximeter] 84 89 Respiratory Rate 16 Blood Pressure [Le ft Arm] 120/72 120/66 Pulse Oximetry 96 Oxygen Delivery Me thod Room Air Oxygen Flow Rate 04/07/25 19:00 04/07/25 21:00 04/07/25 23:00 Temperature 36.7 C 36.6 C Pulse Rate Pulse Rate [Pulse Oximeter] 89 74 74 Respiratory Rate 16 16 16 Blood Pressure [Le ft Arm] 120/66 119/80 Pulse Oximetry 96 96 Oxygen Delivery Me thod Room Air Room Air Oxygen Flow Rate 1 04/07/25 23:00 04/07/25 23:00 04/07/25 23:00 Temperature 36.6 C Pulse Rate 90 Pulse Rate [Pulse Oximeter] 74 Respiratory Rate 16 16 Blood Pressure [Le ft Arm] 119/80 Pulse Oximetry 96 96 Oxygen Delivery Me thod Room Air Room Air Oxygen Flow Rate 1 04/08/25 01:00 04/08/25 02:47 04/08/25 05:00 Temperature 36.7 C 36.7 C 36.7 C Pulse Rate Pulse Rate [Pulse Oximeter] 90 74 74 Respiratory Rate 18 18 18 Blood Pressure [Le ft Arm] 140/70 H 153/64 H 148/66 H Pulse Oximetry 97 95 94 Oxygen Delivery Me thod Room Air Room Air Room Air Oxygen Flow Rate 04/08/25 07:00 04/08/25 07:00 04/08/25 07:00 Temperature 36.7 C Pulse Rate 91 Pulse Rate [Pulse Oximeter] 80 Respiratory Rate 18 Blood Pressure [Le ft Arm] 144/83 H Pulse Oximetry 99 99 Oxygen Delivery Me thod Room Air Room Air Oxygen Flow Rate 04/08/25 08:37 Temperature 36.7 C Pulse Rate Pulse Rate [Pulse Oximeter] Respiratory Rate 18 Blood Pressure [Le ft Arm] 144/83 H Pulse Oximetry 99 Oxygen Delivery Me thod Room Air Oxygen Flow Rate Labs Labs: Laboratory Results - last 24 hr 04/07/25 04/07/25 04/07/25 13:43 13:50 14:31 WBC 12.28 H RBC 3.49 L Hgb 10.1 L Hct 33.6 MCV 96 MCH 29 MCHC 30 L RDW Coeff of Bobbi 13.4 Plt Count 196 Neut % (Auto) 89.3 H Lymph % (Auto) 7.2 L [place] % (Auto) 3.0 Eos % (Auto) 0.1 Baso % (Auto) 0.1 Neut # (Auto) 11.00 H Lymph # (Auto) 0.90 [place] # (Auto) 0.40 Eos # (Auto) 0.00 Baso # (Auto) 0.00 Abs Immat Gran (auto) 0.00 Imm/Tot Granulo (auto) 0.3 Sodium 134 L Potassium 4.2 Chloride 103 Carbon Dioxide 20 Anion Gap 11 BUN 23 Creatinine 1.1 Estimated Creat Clear 35.40 Estimated GFR 54 Glucose 226 H Calcium 8.5 Magnesium 1.3 L Troponin I < 0.01 NT-Pro-B Natriuret Pep 48 Lab Acknowledgement Test Added
--- NOTE | 2025-04-08 11:15 | PC.NURSE ---
Pt is doing well today. VSS. Pain controlled well with prn medications and ice. Right arm remains in sling. Pt is ambulating independently and tolerating oral intake. Surgical dressing is clean, dry and intact. Discharge instructions and pt belongings signed, no further questions or concerns. Pt discharged home via at 1055.
== END 2025-04-08 10:55 | disposition home or self-care (01) ==
LOC: OR 06:12 → MEDSURG 11:08
PROVIDERS: Family Medicine; PCP Student in an Organized Health Care Education/Training Program; Visit Provider Orthopaedic Surgery Sports Medicine
PROC: 0RRJ0JZ Replacement of Right Shoulder Joint with Synthetic Substitute, Open Approach (ICD-10-PCS; CPT 23472; principal; 2025-04-07 07:45)
DX: M19.011 Primary osteoarthritis, right shoulder (principal); M75.21 Bicipital tendinitis, right shoulder; G89.18 Other acute postprocedural pain; I49.8 Other specified cardiac arrhythmias; R01.1 Cardiac murmur, unspecified; I35.0 Nonrheumatic aortic (valve) stenosis; I12.9 Hypertensive chronic kidney disease with stage 1 through stage 4 chronic kidney disease, or unspecified chronic kidney disease; E11.22 Type 2 diabetes mellitus with diabetic chronic kidney disease; N18.30 Chronic kidney disease, stage 3 unspecified; E83.42 Hypomagnesemia
CPT/HCPCS: 23472; 23430; 01638; 36415; 64415; 73030; 76942; 80048; 82962; 83735; 83880; 84484; 85025; 93306; 97110; 97165; 97530; 97535; 99100; A9270; C1713; C1776; J0330; J0690; J1100; J2250; J2371; J2405; J2704; J2710; J2795; J3010; J7120